=== PATIENT | male | born 1940 | race Two or more races ===

== ENCOUNTER 2019-02-13 12:12 | Day surgery (SDC) | payer MEDICARE, OTHER ==
[2019-02-13] VITALS (9 sets, daily range): BP systolic 102–137; BP diastolic 57–81
[~2019-02-13] VITALS: Ht 160 cm; Wt 81.6 kg
[~2019-02-13 12:12] MED LIST: ceFAZolin 1gm IVPB IVPB ONE; celeBREX 200mg Cap **SURGERY PATIENTS ONLY ORAL ONE; oxyCONTIN 20mg tab ORAL ONE
[2019-02-13] MEDS ORDERED: oxyCONTIN 20mg tab ORAL ONE (12:58)
[2019-02-13] MEDS ORDERED: celeBREX 200mg Cap **SURGERY PATIENTS ONLY ORAL ONE (12:58)
[2019-02-13] MEDS ORDERED: LR 1000ml 1,000 ML IVLG SCH ×2 (13:08→16:10)
--- NOTE | 2019-02-13 13:08 | Anethesia Preoperative Eval ---
Daiana Hill MD 02/13/19 1308: Anesthesia Pre-op PMH/ROS General Date of Evaluation: Feb 13, 2019 Anesthesiologist: Cesar ASA Score: ASA 3 Mallampati Score Class I : Soft palate, uvula, fauces, pillars visible Class II: Soft palate, uvula, fauces visible Class III: Soft palate, base of uvula visible Class IV: Only hard plate visible Mallampati Classification: Class II Surgeon: Thierry Diagnosis: Left shoulder internal derangement Surgical Procedure: Left shoulder arthroscopy with subacromial decompression Anesthesia History: none Family History: no anesthesia problems Allergies: Coded Allergies: No Known Allergies (Unverified , 02/12/19) Medications: see eMAR Patient NPO?: Yes NPO Date: Feb 12, 2019 NPO Time: 22:00 Past Medical History Cardiovascular: Reports: HTN, other - HLD; Denies: CAD, TX, valve dz, arrhythmia Pulmonary: Denies: asthma, COPD, JASON, other Gastrointestinal/Genitourinary: Reports: GERD, other - prostate cancer; Denies: CRI, ESRD Neurologic/Psychiatric: Denies: dementia, CVA, depression/anxiety, TIA, other Endocrine: Reports: DM; Denies: hypothyroidism, steroids, other HEENT: Denies: cataract (L), cataract (R), glaucoma, NIGHTMUTE (L), NIGHTMUTE (R), other Hematology/Immune: Denies: anemia, DVT, bleeding disorder, other Musculoskeletal/Integumentary: Denies: OA, RA, DJD, DDD, edema, other PSxH Narrative: TURP, right knee sx, right shoulder sx, right ankle sx Anesthesia Pre-op Phys. Exam Physician Exam Last Vital Signs Date Time Temp Pulse Resp B/P (MAP) Pulse Ox O2 Delivery O2 Flow Rate FiO2 02/13/19 12:52 Room Air 02/13/19 12:50 97.3 66 18 111/77 95 Constitutional: NAD Cardiovascular: RRR Respiratory: CTA Airway Exam Mallampati Score: Class II MO: limited ROM: limited Anesthesia Pre-op A/P Labs see chart Studies Pre-op Studies: EKG - sr Risk Assessment & Plan Assessment: ASA III Plan: GA with left interscalene nerve block Status Change Before Surgery: No Pre-Antibiotics Drug: Ancef 2g Given Within 1 Hr of Incision: Yes Vakulenko,Niko MD 02/13/19 1610: Anesthesia Pre-op PMH/ROS General Date of Evaluation: Feb 13, 2019 Time of Evaluation: 14:40 Anesthesiologist: Renée ASA Score: ASA 2 Mallampati Score 2 Mallampati Classification: Class II Surgeon: Thierry Diagnosis: L shoulder pain Surgical Procedure: L shoulder scope Anesthesia History: none Family History: no anesthesia problems Allergies: Coded Allergies: No Known Allergies (Unverified , 02/12/19) Medications: see eMAR Patient NPO?: Yes Past Medical History Cardiovascular: Reports: HTN; Denies: CAD, TX, valve dz, arrhythmia, other Pulmonary: Denies: asthma, COPD, JASON, other Gastrointestinal/Genitourinary: Reports: GERD; Denies: CRI, ESRD, other Neurologic/Psychiatric: Denies: dementia, CVA, depression/anxiety, TIA, other Endocrine: Reports: DM - stable on pills; Denies: hypothyroidism, steroids, other HEENT: Denies: cataract (L), cataract (R), glaucoma, NIGHTMUTE (L), NIGHTMUTE (R), other Hematology/Immune: Denies: anemia, DVT, bleeding disorder, other Musculoskeletal/Integumentary: Denies: OA, RA, DJD, DDD, edema, other Other: other - overweight PMH Narrative: as above PSxH Narrative: R shoulder scope Anesthesia Pre-op Phys. Exam Physician Exam Constitutional: NAD Neurologic: CN 2-12 intact Cardiovascular: RRR, no M/R/G Respiratory: CTA Gastrointestinal: S/NT/ND Airway Exam Mallampati Score: Class II MO: full Neck: stiff ROM: limited Teeth: intact Dentures: no upper, no lower Anesthesia Pre-op A/P Labs see chart Studies Pre-op Studies: EKG - SR Risk Assessment & Plan Assessment: ASA 2 Plan: GA with LMA Brachial plexus block for postop pain control Status Change Before Surgery: No Pre-Antibiotics Drug: Ancef 1gr Given Within 1 Hr of Incision: Yes Time Given: 15:12 Daiana Hill MD Feb 13, 2019 13:08 Niko Chinchilla MD Feb 13, 2019 16:10
[2019-02-13] MEDS ORDERED: AZELASTINE205.5 MCG/ NS (13:12)
[2019-02-13] MEDS ORDERED: CLOPIDOGREL75 MG ORAL (13:12)
[2019-02-13] MEDS ORDERED: VITAMIN D250000 UNI1 ORAL (13:12)
[2019-02-13] MEDS ORDERED: NORVASC5 MG ORAL (13:12)
[2019-02-13] MEDS ORDERED: RESTASIS1 EACH BOTH EYES (13:12)
[2019-02-13] MEDS ORDERED: TIMOLOL MALEATE10 MG PO (13:12)
[2019-02-13] MEDS ORDERED: MYRBETRIQ50 MG PO (13:12)
[2019-02-13] MEDS ORDERED: TRULICITY0.75 MG/0. SQ (13:12)
[2019-02-13] MEDS ORDERED: PAROXETINE HC37.5 MG PO (13:12)
[2019-02-13] MEDS ORDERED: DEXILANT60 MG ORAL (13:12)
[2019-02-13] MEDS ORDERED: FENOFIBRATE145 M1 ORAL (13:12)
[2019-02-13] MEDS ORDERED: STOOL SOFTENER1 EAC3 PO (13:12)
[2019-02-13] MEDS ORDERED: ATORVASTATIN CA20 MG ORAL (13:12)
[2019-02-13] MEDS ORDERED: JANUVIA25 MG ORAL (13:12)
[2019-02-13] MEDS ORDERED: METFORMIN HCL500 M1 ORAL (13:12)
[2019-02-13] MEDS ORDERED: ZANTAC150 MG ORAL (13:12)
[2019-02-13] MEDS ORDERED: DiphenhydrAMINE 50mg/ml Inj IVP PRN ×2 (13:15→16:15)
[2019-02-13] MEDS ORDERED: LORazepam Inj 2mg/ml 1ml IV PRN (13:15)
[2019-02-13] MEDS ORDERED: Midazolam 2mg/2ml Inj IVP PRN (13:15)
[2019-02-13] MEDS ORDERED: Ketorolac 30mg Inj IV PRN ×2 (13:15→16:15)
[2019-02-13] MEDS ORDERED: Metoclopramide 10mg/2ml Inj IVP PRN (13:15)
[2019-02-13] MEDS ORDERED: Hydromorphone 0.5mg/0.5ml inj IVP PRN ×2 (13:15→16:15)
[2019-02-13] MEDS ORDERED: fentaNYL 100 mcg/2 mL IV PRN (13:15)
[2019-02-13] MEDS ORDERED: Bupivacaine 0.25% Inj 30ml INJ ONE (14:25)
[2019-02-13] MEDS ORDERED: Propofol 200mg/20ml IV ONE (14:31)
[2019-02-13] MEDS ORDERED: Lidocaine 1% MPF 10mg/ml 5ml ONE (14:31)
[2019-02-13] MEDS ORDERED: Hydrogen Peroxide 473ml Bottle TOPIC ONE (14:56)
[2019-02-13] MEDS ORDERED: Ropivacaine 5mg/ml Vial 30ml INJ ONE (15:00)
--- NOTE | 2019-02-13 15:14 | Pre-Procedure Note/Attestation ---
Pre-Procedure Note/Attestation Complete Prior to Procedure Planned Procedure: left Procedure Narrative: shoulder diagnostic arthroscopy, sad, possible rc repair Indications for Procedure Pre-Operative Diagnosis: left shoulder internal derangement Attestation I attest that I discussed the nature of the procedure; its benefits; risks and complications; and alternatives (and the risks and benefits of such alternatives ), prior to the procedure, with the patient (or the patient's legal guest experience representative). I attest that, if there was a reasonable possibility of needing a blood transfusion, the patient (or the patient's legal guest experience representative) was given the [facility] standardized written summary, pursuant to the Enrrique Christo Blood Safety Act ([place] Health and Safety Code # 1645, as amended). I attest that I re-evaluated the patient just prior to the surgery and that there has been no change in the patient's H&P, except as documented below: Neftaly Guadarrama MD Feb 13, 2019 15:14
--- NOTE | 2019-02-13 15:14 | Operative Note - PDOC ---
Operative Note Operative Note Pre-op Diagnosis: left shoulder internal derangement Procedure: see op report Post-op Diagnosis: same as pre-op plus Operative Findings: consistent w/pre-op dx studies Anesthesia: regional Specimen: none Complications: none Condition: stable Estimated Blood Loss: none Implant(s) used?: No Neftaly Guadarrama MD Feb 13, 2019 15:14
[2019-02-13] MEDS ORDERED: Tylenol #3 tab (300mg/30mg) ORAL PRN (15:15)
[2019-02-13] MEDS ORDERED: HYDROcodone/Acetamin 5/325 tab ORAL PRN (15:15)
[2019-02-13] MEDS ORDERED: HYDROmorphone 1mg/ml Carpuject SUBQ PRN (15:15)
[2019-02-13] MEDS ORDERED: D5 1/2NS 1,000 ML IV SCH (15:15)
[2019-02-13] MEDS ORDERED: NS Irrig 4000ml IRRIG ONE (15:48)
[2019-02-13] MEDS ORDERED: Kenalog-40 1ml Vial ONE (16:02)
[2019-02-13] MEDS ORDERED: Duramorph PF 5mg/10ml amp ONE (16:02)
--- NOTE | 2019-02-13 16:34 | Immediate Post-Op Evaluation ---
Immediate Post-Op Evalulation Immediate Post-Op Evalulation Procedure: L shoulder arthroscopy subacromion decompression Date of Evaluation: Feb 13, 2019 Time of Evaluation: 16:33 IV Fluids: 1000 Blood Products: none Estimated Blood Loss: min Urinary Output: none Blood Pressure Systolic: 136 Blood Pressure Diastolic: 74 Pulse Rate: 64 Respiratory Rate: 20 O2 Sat by Pulse Oximetry: 98 Temperature (Fahrenheit): 97.6 Pain Score (1-10): 1 Nausea: No Vomiting: No Complications none Patient Status: awake, patent, none Hydration Status: adequate Niko Chinchilla MD Feb 13, 2019 16:34
--- NOTE | 2019-02-13 17:06 | 48 Hour Post Anesthesia Eval ---
Post Anesthesia Evaluation Procedure: L shoulder arthroscopy subacromion decompression Date of Evaluation: Feb 13, 2019 Time of Evaluation: 17:05 Blood Pressure Systolic: 132 0: 79 Pulse Rate: 80 Respiratory Rate: 20 Temperature (Fahrenheit): 97.5 O2 Sat by Pulse Oximetry: 98 Airway: patent Nausea: No Vomiting: No Pain Intensity: 1 Hydration Status: adequate Cardiopulmonary Status: stable Mental Status/LOC: patient returned to baseline Follow-up Care/Observations: n/a Post-Anesthesia Complications: none Follow-up care needed: ready to discharge Niko Chinchilla MD Feb 13, 2019 17:06
--- NOTE | 2019-02-14 02:00 | Operative Note - Dictated ---
DATE OF OPERATION: 02/13/2019 PREOPERATIVE DIAGNOSES: 1. Left shoulder partial rotator cuff tear. 2. Possible biceps tendon tear. 3. Impingement syndrome. POSTOPERATIVE DIAGNOSES: 1. Left shoulder partial articular-sided rotator cuff tear. 2. Degenerative labral tear. 3. Partial biceps tendon tear. 4. Impingement syndrome. PROCEDURES: 1. Left shoulder diagnostic arthroscopy, extensive intraarticular debridement. 2. Debridement of partial subscap and supraspinatus rotator cuff tear. 3. Subacromial decompression bursectomy. SURGEON: Neftaly Guadarrama M.D. ANESTHESIA: Interscalene with general. INDICATION FOR PROCEDURE: The patient is a pleasant gentleman, who has had continued left shoulder pain. He had an MRI, which showed possible tear of the rotator cuff along with impingement syndrome. He had some degenerative labral pathology as well as possible tendon injury to the long head of the biceps. Risks, limitations, expectations, and complications of the procedure were discussed in detail. All questions addressed. DESCRIPTION OF PROCEDURE: After informed consent was obtained, the patient was brought to the operating room. The patient was placed under interscalene general anesthesia. The patient was then carefully placed in beach-chair position. Right shoulder was prepped and draped in a sterile manner. Time-out was performed. Inferolateral stab incision was then made. Trocar was introduced into the glenohumeral joint. There was significant fraying of the anterior and superior labrum. The biceps tendon had some fraying along the superior border of the subscap. The undersurface of the rotator cuff along the supraspinatus was partially torn. A shaver was then placed through the rotator interval and complete debridement of the labrum and the rotator cuff was performed along with the biceps tendon. Once that was completed, the camera was repositioned and was placed in the hypertrophic bursal tissue. Complete bursectomy was performed along with identification of the undersurface of the acromion. Acromioplasty was started from lateral to medial and completed posterior to anterior. Once that was completed, the instruments were removed. Portal sites were closed with 3-0 Monocryl sutures. Steri-Strips and a sterile dressing were applied. The patient was awoken and taken to recovery room with stable vital signs. ESTIMATED BLOOD LOSS: Minimal. COMPLICATIONS: None. SPECIMENS: None. IMPLANTS: None. Neftaly Guadarrama M.D. DR: SARAH JOB#: [id number] CC:
== END 2019-02-13 18:15 | disposition home or self-care (01) ==
LOC: SUR 12:12
DX: M75.112 Incomplete rotator cuff tear or rupture of left shoulder, not specified as traumatic (principal); S43.402A Unspecified sprain of left shoulder joint, initial encounter; S46.212A Strain of muscle, fascia and tendon of other parts of biceps, left arm, initial encounter; M75.42 Impingement syndrome of left shoulder; X58.XXXA Exposure to other specified factors, initial encounter; Y92.9 Unspecified place or not applicable; I10 Essential (primary) hypertension; E78.5 Hyperlipidemia, unspecified; K21.9 Gastro-esophageal reflux disease without esophagitis; Z85.46 Personal history of malignant neoplasm of prostate; E11.9 Type 2 diabetes mellitus without complications
CPT/HCPCS: 29823; 82962; J0690; J1885; J2704; J3010; J3301; 94003; 94150